=== PATIENT | female | born 1945 | race Caucasian/White ===

== ENCOUNTER 2017-04-22 08:38 | Inpatient (IN) | payer OTHER, MEDICAID ==
[2017-04-19 09:41] LABS: ABSOLUTE EOSINOPHILS 0.3 thou/uL (0.0-0.7); ABSOLUTE LYMPHOCYTES 1.2 thou/uL (0.8-5.3); ABSOLUTE MONOCYTES 0.5 thou/uL (0.0-1.2); ABSOLUTE NEUTROPHILS 5.1 thou/uL (1.6-8.1); BASOPHILS 0.6 %; EOSINOPHILS 3.9 %; HEMATOCRIT 40.2 % (37.0-47.0); HEMOGLOBIN 13.3 gm/dL (12.0-15.0); LYMPHOCYTES 16.6 %; MCH 28.3 pg (26.0-34.0); MCV 85.7 fL (80.0-100.0); MONOCYTES 7.2 %; MPV 7.3 fl. (7.2-11.1); NUCLEATED RBCS 0 /100WBC; PLATELET COUNT* 273 thou/uL (150-400); POLYS 71.7 %; RBC 4.69 mil/uL (4.20-5.00); RDW-CV 14.2 % (10.5-14.5); WBC 7.1 thou/uL (4.0-11.0)
[2017-04-19 09:46] LABS: APTT 27.5 Seconds (25.0-31.3); PROTIME 9.7 Seconds (9.20-11.50)
[2017-04-19 10:01] LABS: ALBUMIN 3.6 g/dL (3.4-5.0); CALCIUM 8.8 mg/dL (8.5-10.1); CREATININE 0.7 mg/dL (0.6-1.3); POTASSIUM 4.1 mmol/L (3.5-5.1); TOTAL BILIRUBIN 0.6 mg/dL (<0.1-1.0); TOTAL PROTEIN 6.7 g/dL (6.4-8.2)
[2017-04-19 10:42] LABS: ESR (SEDRATE) 10 mm/hr (0-30)
[~2017-04-22] VITALS: Ht 157.5 cm; Wt 83.9 kg
[~2017-04-22 08:38] MED LIST: CASCARA SAGRADA1 ML PO; CELEBREX 200 M200 M1 PO; FOSAMAX 70 MG T70 MG PO; L-LYSINE1000 M1 PO; LINZESS290 MCG PO; LIQUID SILVER PO; NORVASC5 MG PO; PERCOCET PO; TRAMADOL 50 MG50 MG PO; XARELTO10 MG PO; [UNRECOGNIZED DRUG - OTHER] PO; [UNRECOGNIZED DRUG - OTHER] PO
[2017-04-22 10:45] VITALS: BP 153/83
[2017-04-22 17:00] VITALS: BP 134/70
[2017-04-22 21:00] VITALS: BP 122/66
[2017-04-22 23:13] VITALS: BP 98/55
[2017-04-23 03:40] VITALS: BP 119/59
[2017-04-23 07:38] LABS: HEMATOCRIT 33.3 % (37.0-47.0)
[2017-04-23 08:30] VITALS: BP 130/60
[2017-04-23 16:17] VITALS: BP 138/75
[2017-04-23 22:52] VITALS: BP 129/61
[2017-04-24 00:30] VITALS: BP 126/67; BP 129/61
[2017-04-24 04:34] LABS: ABSOLUTE EOSINOPHILS 0.3 thou/uL (0.0-0.7); ABSOLUTE LYMPHOCYTES 1.9 thou/uL (0.8-5.3); ABSOLUTE MONOCYTES 1.2 thou/uL (0.0-1.2); ABSOLUTE NEUTROPHILS 7.9 thou/uL (1.6-8.1); BASOPHILS 0.4 %; EOSINOPHILS 2.9 %; HEMATOCRIT 33.3 % (37.0-47.0); HEMOGLOBIN 10.9 gm/dL (12.0-15.0); LYMPHOCYTES 16.7 %; MCH 28.4 pg (26.0-34.0); MCHC 32.8 g/dL (28.0-37.0); MCV 86.8 fL (80.0-100.0); MONOCYTES 10.5 %; MPV 7.7 fl. (7.2-11.1); NUCLEATED RBCS 0 /100WBC; PLATELET COUNT* 249 thou/uL (150-400); POLYS 69.5 %; RBC 3.83 mil/uL (4.20-5.00); RDW-CV 14.5 % (10.5-14.5); WBC 11.3 thou/uL (4.0-11.0)
[2017-04-24 05:18] LABS: ALBUMIN 2.8 g/dL (3.4-5.0); CALCIUM 7.4 mg/dL (8.5-10.1); CREATININE 0.5 mg/dL (0.6-1.3); MAGNESIUM 2.3 mg/dL (1.8-2.4); POTASSIUM 4.2 mmol/L (3.5-5.1); TOTAL BILIRUBIN 0.7 mg/dL (<0.1-1.0); TOTAL PROTEIN 5.7 g/dL (6.4-8.2)
[2017-04-24] MEDS ORDERED: ELIQUIS2.5 MG PO (05:29)
[2017-04-24] MEDS ORDERED: OXYCODONE HCL 55 MG PO (05:39)
[2017-04-24] MEDS ORDERED: PERCOCET PO (05:42)
[2017-04-24 05:49] VITALS: BP 129/61
[2017-04-24 08:37] VITALS: BP 133/69
[2017-04-24 15:46] VITALS: BP 129/66
[2017-04-24 20:30] VITALS: BP 149/76
[2017-04-25 03:19] VITALS: BP 143/77
[2017-04-25 04:41] LABS: ABSOLUTE EOSINOPHILS 0.3 thou/uL (0.0-0.7); ABSOLUTE LYMPHOCYTES 1.5 thou/uL (0.8-5.3); ABSOLUTE NEUTROPHILS 8.4 thou/uL (1.6-8.1); BASOPHILS 0.3 %; HEMATOCRIT 33.1 % (37.0-47.0); HEMOGLOBIN 11.1 gm/dL (12.0-15.0); LYMPHOCYTES 13.6 %; MCH 28.8 pg (26.0-34.0); MCHC 33.4 g/dL (28.0-37.0); MONOCYTES 8.9 %; MPV 7.8 fl. (7.2-11.1); NUCLEATED RBCS 0 /100WBC; PLATELET COUNT* 267 thou/uL (150-400); POLYS 74.2 %; RBC 3.85 mil/uL (4.20-5.00); RDW-CV 14.1 % (10.5-14.5); WBC 11.3 thou/uL (4.0-11.0)
[2017-04-25 05:17] LABS: ALBUMIN 2.8 g/dL (3.4-5.0); CALCIUM 8.3 mg/dL (8.5-10.1); CREATININE 0.5 mg/dL (0.6-1.3); POTASSIUM 3.7 mmol/L (3.5-5.1); TOTAL BILIRUBIN 0.9 mg/dL (<0.1-1.0); TOTAL PROTEIN 6.5 g/dL (6.4-8.2)
[2017-04-25 09:10] VITALS: BP 136/76
[2017-04-25 16:00] VITALS: BP 152/70
[2017-04-25 20:00] VITALS: BP 136/69
[2017-04-26 00:16] VITALS: BP 160/69
--- NOTE | 2017-04-26 10:56 | S ---
[address] [address] SURGICAL PATH RPT PROCEDURE Name: OPHELIA FERRERA Room: [address] IN ..#: [id number] Admission: 04/22/17 Date of : 47 Discharge: Report #: [id number] Path Case #: [id number] PATHOLOGY REPORT COLLECTION DATE: 04/22/2017 RECEIVED DATE: 04/22/2017 SUBMITTING PHYS: Dr. Stanford Nath OTHER PHYS: Dr. Aj Chou SPECIMEN(S) RECEIVED: A.L shoulder bone and tissue * * * * * * * * * * * * FINAL DIAGNOSIS: Left shoulder bone and tissue, total shoulder replacement: - Benign fibrofatty tissue/synovium, scant benign skeletal muscle and benign humeral head tissues including hematopoietic elements, with severe degenerative changes. (LUIS:jaylon; 04/26/2017) PATHOLOGIST: Michael Mustafa M.D. REPORT ELECTRONICALLY SIGNED BY: Michael Mustafa M.D. DATE/TIME: 04/26/2017 10:55 * * * * * * * * * * * * GROSS PATHOLOGY: Received in formalin labeled "Ophelia Ferrera, left shoulder bone and tissue," is a humeral head measuring 5.4 x 4.3 x 1.7 cm in greatest dimensions, admixed with multiple smaller fragments of bone and soft tissue. The articular surface is smooth to granular and pale ortiz-esparza to yellow-esparza in appearance, displaying a well-circumscribed area of focal eburnation/pitting measuring 3.4 x 2.4 cm. Sectioning the bone reveals pale esparza-brown to pale yellow cut surfaces. Operations Super[employer] tissue is submitted in cassette A1, following decalcification. (DAC; 04/25/2017) CLINICAL HISTORY: Left shoulder degenerative joint disease INITIAL CPT CODE(S): A; 52574, 82222 Professional services performed by [facility] at [facility], [address] [place] [address]. Technical services performed by [facility] at [address] [place] [address], [address], [place] [address] SURGICAL PATH RPT PROCEDURE Name: OPHELIA FERRERA Room: [address] IN ..#: [id number] Admission: 04/22/17 Date of : 47 Discharge: Report #: [id number] Path Case #: [id number] [place] [address]. [facility] [address] [place] [address] PHONE: [phone] DIRECTOR: Osvaldo John M.D. * * * END OF REPORT * * *
[2017-04-26 11:04] VITALS: BP 129/61
[2017-04-26] MEDS ORDERED: OSELB75 PO (11:18)
[2017-04-26] MEDS ORDERED: MELATONIN5 M1 PO (11:24)
[2017-04-26] MEDS ORDERED: METAMUCIL1 EAC1 PO (11:27)
[2017-04-26] MEDS ORDERED: MILK OF MA2400 MG/10 PO (11:28)
[2017-04-26] MEDS ORDERED: ALUMINUM H600 MG/5 M PO (11:34)
[2017-04-26] MEDS ORDERED: THROAT LOZENGE1 EACH PO (11:36)
[2017-04-26] MEDS ORDERED: CELEBREX 200 M200 M1 PO (11:45)
[2017-04-26] MEDS ORDERED: BENADRYL25 MG PO (11:47)
[2017-04-26] MEDS ORDERED: COLACE100 MG PO (11:48)
[2017-04-26] MEDS ORDERED: ELIQUIS2.5 MG PO (11:49)
[2017-04-26 16:00] VITALS: BP 156/72
[2017-04-26 18:53] VITALS: BP 129/61
--- NOTE | 2017-05-06 07:38 | OP ---
[address] [place] [address] OPERATIVE REPORT Name: IBANOPHELIA E Room: [address]#: [id number] Admission: 04/22/17 Attend Phys: Fernando Thomas Discharge: 04/26/17 Date of : 47 Report #: [id number] THIS REPORT FOR: //name// CC: Arturo Vasques DICTATED BY: Sonny Gonzales DATE OF SERVICE: 04/22/2017 PREOPERATIVE DIAGNOSIS: Left shoulder rotator cuff arthropathy. POSTOPERATIVE DIAGNOSIS: Left shoulder rotator cuff arthropathy. PROCEDURE: Left reverse total shoulder arthroplasty utilizing Tornier implants. 1. A +6 mm polyethylene insert. 2. A size 2 humeral stem. 3. A 0 mm reverse tray centered. 4. A 25 mm length threaded baseplate. 5. A 10 degree tilted glenosphere. SURGEON: Stanford Nath DO DIE CAST SUPERVISOR: Sonny Gonzales DO SECOND SUCTION OPERATOR: Ashu Lorenzo DO ANESTHESIA: General and interscalene nerve block. SPECIMENS: None. DRAINS: None. COMPLICATIONS: None apparent. ESTIMATED BLOOD LOSS: 50 mL. ANTIBIOTICS: 2 grams Ancef. CONDITION: Stable, transferred to PACU. DISPOSITION: PACU to Med/Surg. PERTINENT HISTORY AND PHYSICAL: This is a pleasant 71-year-old female who presents with longstanding left shoulder pain. She has developed some evidence [address] [place] [address] OPERATIVE REPORT Name: OPHELIA FERRERA Room: [address] IN M.R.#: [id number] Admission: 04/22/17 Attend Phys: Fernando Thomas Discharge: 04/26/17 Date of : 47 Report #: [id number] of some likely rotator cuff arthropathy, left shoulder. She is status post right reverse shoulder arthroplasty. She has elected for a left reverse total shoulder arthroplasty also. We again discussed the procedure to be performed in great detail including but not limited to the risks, benefits, potential complications and alternatives including but not limited to infection, blood loss, damage to surrounding tissue, damage to blood vessels and nerves, continued pain, worsening pain, numbness, tingling, weakness, paralysis, loss of function, hardware loosening hardware failure, intraoperative fracture, postoperative fracture, instability, dislocation, inability to use the shoulder, paralysis, need for further surgery, complications with anesthesia, thrombus, as well as other imponderables, also numbness, tingling, weakness, continued pain, worsening pain and she wished to proceed. DESCRIPTION OF PROCEDURE: After written consent was obtained, the patient was transferred to the operative suite and placed in the supine position on the operative table. Anesthesia was induced via the anesthesia team. The patient was then placed in beach chair position. The left upper extremity was sterilely prepped and draped with Hibiclens and ChloraPrep x 2. Timeout was performed. Correct patient, surgical site, procedure to be performed, antibiotics and surgeon were confirmed. Marking pen used to gregg our correct location of the deltopectoral interval. Incision made with a 10 blade knife followed by dissection down to the level of superficial tissues. The fascial layer was identified. Deltopectoral interval was identified and entered. Subdeltoid adhesions were freed up. A brown deltoid retractor was placed posteriorly. The clavipectoral fascia was released and a retractor was placed behind the conjoined tendon with great care not to over retract. Bicipital groove was identified and entered and we dissected to the back to the glenoid. A subscapularis tenotomy was performed tagging the subscap with #2 FiberWires. The tenotomy was completed. The shoulder was dislocated. The humeral head was cut in a freehand fashion. We broached the femoral canal and sized up to a size 2 in the usual fashion. The size [address] with a protecting plate. Next, the humerus was moved posteriorly and posterior glenoid retractor was placed followed by the anterior glenoid retractor. The soft tissues around the glenoid were removed. The preop templated glenoid guide was placed in the appropriate location as the same as the template on the glenoid. The guide pin was drilled through the guide in the same location as it fit on the template. A good purchase of the guidepin was noted. Next, we sequentially reamed followed by pie crusting over the guidepin. We opened and reamed followed by drill to a depth of 25 mm. The depth was checked and 25 mm was found to be a good size. The 25 mm length threaded baseplate was then threaded into place with excellent bony purchase. We drilled and filled a superior and inferior screw through the threaded baseplate both 26 mm in length. These were locking screws. The above-mentioned glenosphere was then placed and it seated nicely and excellent purchase with the screw. Next, the proximal humerus is represented. The trial tray was inserted. The shoulder was reduced. Excellent stability was noted, stable throughout range of motion. There was no [address] [address] OPERATIVE REPORT Name: OPHELIA FERRERA Room: [address]#: [id number] Admission: 04/22/17 Attend Phys: Fernando Thomas Discharge: 04/26/17 Date of : 47 Report #: [id number] impingement or signs of instability. The shoulder was dislocated. The wound was thoroughly irrigated. The bone was irrigated prior to placement of the glenoid also. The final irrigation of the proximal humerus was performed and the final stem was impacted into place. The final polyethylene spacer was impacted into place and the shoulder was reduced. Again, it was taken throughout range of motion and stability was checked. There were no signs of subluxation or dislocation. No signs of impingement and excellent reverse shoulder arthroplasty was noted with no obvious signs of instability or impingement. Next, #2 FiberWire x 2 was passed through the subscap stump on the lesser tuberosity. These were sewn to the tag sutures in the subscapularis tendon to repair the subscapularis. These were tied. These were oversewn with another #2 FiberWire in [id number] interrupted fashion. The wound was again thoroughly irrigated. The deltopectoral interval layer was closed with a #1 Vicryl suture in [id number] interrupted technique. The subcutaneous layer was thoroughly irrigated. The subQ layer was closed with a 2-0 Vicryl suture in interrupted buried knot technique. Closure of the skin was performed with a running 3-0 Stratafix suture followed by Dermabond skin glue. Mepilex dressing used as sterile dressing. The shoulder was placed in a sling. Anesthesia was reversed by the anesthesia team. The patient was transferred back to the transfer cart and transferred to the postanesthesia care unit in stable condition. The patient appeared to tolerate this procedure well. There were no obvious complications apparent. Needle and sponge counts correct per the operating room team. DISPOSITION: Nonweightbearing, left upper extremity. Discharged to the floor when stable per anesthesia. She will be admitted to medicine. <ELECTRONICALLY SIGNED> By: Raul Villegas DO 05/06/17 [id number] 1602Stanford Nath DO /jagruti
== END 2017-04-26 18:37 | disposition home or self-care (01) | DRG 483 ==
LOC: M.PRE 08:38 → M.TBA 09:50 → M.ORTHSURG 09:50 → M.PRE 10:40 → M.ORTHSURG 15:46
PROVIDERS: Orthopaedic Surgery; ADMIT Internal Medicine
PROC: 0RRK00Z Replacement of Left Shoulder Joint with Reverse Ball and Socket Synthetic Substitute, Open Approach (ICD-10-PCS; principal; 2017-04-22)
DX: M19.012 Primary osteoarthritis, left shoulder (principal); I10 Essential (primary) hypertension; K59.00 Constipation, unspecified; Z79.899 Other long term (current) drug therapy; Z90.49 Acquired absence of other specified parts of digestive tract; Z90.710 Acquired absence of both cervix and uterus